=== PATIENT | female | born 1980 | race Two or more races ===

== ENCOUNTER 2023-07-24 22:11 | Emergency (ER) | payer OTHER ==
[~2023-07-24] VITALS: Ht 162.6 cm; Wt 96.8 kg
[2023-07-24 23:00] VITALS: BP 143/103; PULSE 111; RESP 16; TEMP 97.5; O2SAT 100
[2023-07-25] MEDS ORDERED: LORazepam 2MG/ML-1ML VIAL IM ONE (00:45)
[2023-07-25] MEDS ORDERED: IBUP1TAB5 PO (01:57)
[2023-07-25] MEDS ORDERED: IBUPROFEN 800 MG TAB PO ONE (02:00)
== END 2023-07-25 02:06 | disposition home or self-care (01) ==
LOC: ER 22:11
DX: S63.282A Dislocation of proximal interphalangeal joint of right middle finger, initial encounter (principal); S63.632A Sprain of interphalangeal joint of right middle finger, initial encounter; F41.9 Anxiety disorder, unspecified; I10 Essential (primary) hypertension; Z88.8 Allergy status to other drugs, medicaments and biological substances; Z79.899 Other long term (current) drug therapy; X58.XXXA Exposure to other specified factors, initial encounter; Y93.89 Activity, other specified; Y92.89 Other specified places as the place of occurrence of the external cause; Y99.8 Other external cause status
CPT/HCPCS: 26770; 73130; 73140; 96372; 99284; J2060